=== PATIENT | female | born 1985 | race Caucasian/White ===

== ENCOUNTER 2017-04-10 06:14 | Inpatient (IN) | payer OTHER ==
[2017-04-10] VITALS (7 sets, daily range): BP systolic 115–138; BP diastolic 77–95; PULSE 101–122; TEMP 37–37.8; O2SAT 98–100; BMI 19.7
[~2017-04-10] VITALS: Ht 175.3 cm; Wt 60.3 kg
--- NOTE | 2017-04-10 06:35 | EMERGENCY ROOM VISIT NOTE ---
History First contact with patient: 06:32 Chief Complaint: NAUSEA Stated Complaint: NAUSEA/VOMITING,LIGHTHEADED,INSULIN DEPENDANT DIAB Nursing Triage Summary: Pt reports nausea and vomiting for the past 2 days. Pt reports abdominal cramping. History of Present Illness The patient is a 31 year old female with type 1 diabetes who presents to the Emergency Room with complaints of nausea, vomiting and abdominal pain for the last 2 days. She has been unable to eat since Wednesday. Vomits 5 minutes after eating. Yesterday BSG 297 and 156. Usually on Lantus 8-10 units (did not take any yesterday), 4 units novolog with lunch and dinner (yesterday took 4 units @ 10am, 6 units 6pm). Generalized abdominal pain while vomiting at worse but now lingering pain. Severity 7/10 currently. No change in bowel habit - has irritable bowel syndrome. Last period 2 weeks previously. Lasted 3 days. Irregular amount but regular intervals since stopping contraception. Stopped control in Oct - previously on combined oral contraceptive pill (3 month cycle). No vaginal discharge/bleeding. She likely undiagnosed depression and anxiety and sees a counsellor for this but does. Questions asked without mother present. She denies taking any overdose , self harming or any past or present thoughts of suicidal ideation. She has had previous thoughts of self harm but has never followed through. She was taking ibuprofen 800mg up to x3/day for headaches and acetaminophen up to 1300mg x3/day. She denies taking 5 or greater pills at one time. She denies any recent other OTC, herbal, prescription medication or illicit drug use. She previously used occasional cocaine in college but last had this 7 years previously. Denies IVDU. Additional social history as below. Separate history from her mother away from patient. She is particularly concerned about the patient's mental health and is requesting a mental health evaluation. She is concerned about suicidal ideation as she has not been acting her normal self lately but no known specific plans. She disappeared for around 4 days a few months ago. She is currently not under a psychiatrist and recently moved to the area in Oct. Review of Systems Feels facial flushing and chills with vomiting which is now becoming more often. See HPI for pertinent positives & negatives. A total of 10 systems reviewed and were otherwise negative. Past Medical/Surgical History Medical Problems: (1) Irritable bowel syndrome (2) Type 1 diabetes mellitus Social History Smoking Status: Never Smoker Smokeless Tobacco Use: No Alcohol Use: occasionally (binge drinks (4-5 liquor drinks), 1-2 times/week, previously worse, previous withdrawal symptoms) Drug Use: marijuana (occasional) Marital Status: single Housing Status: lives with family (parents) Occupation Status: employed (works at grocery store) Current/Historical Medications Scheduled Insulin Aspart (Novolog Flexpen), 2-4 UNITS SQ AC Insulin Glargine (Lantus), 8-10 UNITS SC QPM Allergies Coded Allergies: No Known Allergies (Unverified , 04/10/17) Physical Exam Vital Signs Date Time Temp Pulse Resp B/P (MAP) Pulse Ox O2 Delivery O2 Flow Rate FiO2 04/10/17 08:54 120 18 126/87 96 Room Air 04/10/17 08:19 120 18 124/91 97 Room Air 04/10/17 07:48 37.1 122 18 124/91 100 Room Air 04/10/17 07:23 123 04/10/17 07:21 117 20 112/86 99 Room Air 04/10/17 06:19 36.7 140 18 116/78 98 Room Air Physical Exam VITAL SIGNS: were reviewed as above GENERAL: no acute distress SKIN: Warm dry and pink, no rashes, no lesions HEAD: Normocephalic and atraumatic EYES: Extraocular muscles intact, pupils equal and reactive to light OROPHARYNX: non erythematous, clear but dry NECK: Supple, no adenopathy or meningismus LUNGS: Clear to auscultation, no respiratory distress, no accessory muscle use HEART: Increased rate, regular rhythm, heart sounds 1+2, no murmurs ABDOMEN: Generalized abdominal pain without rebound or guarding, soft, bowel sounds normal BACK: no CVA tenderness EXTREMITIES: Warm and well perfused, no calf tenderness/swelling, no pedal edema. NEUROLOGICALLY: Awake alert and oriented without focal deficit. No facial droop. Moving all 4 limbs without focal weakness MUSCULOSKELETAL: Good muscle tone. No evidence of trauma Medical Decision & Procedures ER Provider Diagnostic Interpretation: ABDOMEN AND PELVIS CT WITHOUT CONTRAST CT DOSE: 279.07 mGy.cm HISTORY: Nausea Vomiting, Abdo pain, Cr 2.9 ?appendicitis TECHNIQUE: Multiaxial CT images of the abdomen and pelvis were performed without contrast. COMPARISON STUDY: None. FINDINGS: The lung bases are clear. The unenhanced liver, spleen, gallbladder, pancreas, kidneys, and adrenal glands are within normal limits. No bowel wall thickening or obstruction. The pelvic organs are unremarkable. No suspicious lytic or blastic osseous lesions. IMPRESSION: No significant abnormality identified within the abdomen or pelvis. Electronically signed by: Javad Jordan M.D. 04/10/2017 8:23 AM Dictated Date/Time: 04/10/2017 8:20 AM Laboratory Results 04/10/17 06:30 Red Blood Count 5.45, Mean Corpuscular Volume 90.1, Mean Corpuscular Hemoglobin 32.1, Mean Corpuscular Hemoglobin Concent 35.6, Mean Platelet Volume 10.8, Neutrophils (%) (Auto) 87.5, Lymphocytes (%) (Auto) 4.3, Monocytes (%) (Auto) 7.7, Eosinophils (%) (Auto) 0.0, Basophils (%) (Auto) 0.1, Neutrophils # (Auto) 26.62, Lymphocytes # (Auto) 1.31, Monocytes # (Auto) 2.34, Eosinophils # (Auto) 0.00, Basophils # (Auto) 0.02 04/10/17 06:30 Test 04/10/17 06:25 04/10/17 06:30 04/10/17 06:40 04/10/17 08:00 Bedside Glucose 171 mg/dl (70-90) White Blood Count 30.41 K/uL (4.8-10.8) Red Blood Count 5.45 M/uL (4.2-5.4) Hemoglobin 17.5 g/dL (12.0-16.0) Hematocrit 49.1 % (37-47) Mean Corpuscular Volume 90.1 fL (80-100) Mean Corpuscular Hemoglobin 32.1 pg (25-34) Mean Corpuscular Hemoglobin Concent 35.6 g/dl (32-36) Platelet Count 466 K/uL (130-400) Mean Platelet Volume 10.8 fL (7.4-10.4) Neutrophils (%) (Auto) 87.5 % Lymphocytes (%) (Auto) 4.3 % Monocytes (%) (Auto) 7.7 % Eosinophils (%) (Auto) 0.0 % Basophils (%) (Auto) 0.1 % Neutrophils # (Auto) 26.62 K/uL (1.4-6.5) Lymphocytes # (Auto) 1.31 K/uL (1.2-3.4) Monocytes # (Auto) 2.34 K/uL (0.11-0.59) Eosinophils # (Auto) 0.00 K/uL (0-0.5) Basophils # (Auto) 0.02 K/uL (0-0.2) RDW Standard Deviation 43.9 fL (36.4-46.3) RDW Coefficient of Variation 13.5 % (11.5-14.5) Immature Granulocyte % (Auto) 0.4 % Immature Granulocyte # (Auto) 0.12 K/uL (0.00-0.02) Anion Gap 20.0 mmol/L (3-11) Est Creatinine Clear Calc Drug Dose 27.1 ml/min Estimated GFR () 24.2 Estimated GFR (Non- 20.9 BUN/Creatinine Ratio 15.5 (10-20) Calcium Level 10.4 mg/dl (8.5-10.1) Total Bilirubin 1.6 mg/dl (0.2-1) Aspartate Amino Transf (AST/SGOT) 40 U/L (15-37) Alanine Aminotransferase (ALT/SGPT) 42 U/L (12-78) Alkaline Phosphatase 97 U/L (45-117) Total Protein 10.7 gm/dl (6.4-8.2) Albumin 5.7 gm/dl (3.4-5.0) Globulin 5.0 gm/dl (2.5-4.0) Albumin/Globulin Ratio 1.1 (0.9-2) Lipase 178 U/L (73-393) Thyroid Stimulating Hormone (TSH) 2.110 uIu/ml (0.300-4.500) Human Chorionic Gonadotropin, Qual NEG (NEG) Salicylates Level < 1.7 mg/dl (2.8-20) Acetaminophen Level < 2 ug/ml (10-30) Urine Color DK YELLOW Urine Appearance TURBID (CLEAR) Urine pH 5.0 (4.5-7.5) Urine Specific [place] 1.027 (1.000-1.030) Urine Protein 2+ (NEG) Urine Glucose (UA) NEG (NEG) Urine Ketones 1+ (NEG) Urine Occult Blood 2+ (NEG) Urine Nitrite NEG (NEG) Urine Bilirubin NEG (NEG) Urine Urobilinogen NEG (NEG) Urine Leukocyte Esterase TRACE (NEG) Urine WBC (Auto) >30 /hpf (0-5) Urine RBC (Auto) 5-10 /hpf (0-4) Urine Hyaline Casts (Auto) 1-5 /lpf (0-5) Urine Epithelial Cells (Auto) >30 /lpf (0-5) Urine Bacteria (Auto) 3+ (NEG) Urine Pathogenic Casts /lpf (0) Urine Yeast (Auto) BUDDING (NONE PRSENT) Urine Test NEG (NEG) Prothrombin Time 11.0 SECONDS (9.0-12.0) Prothromb Time International Ratio 1.0 (0.9-1.1) Activated Partial Thromboplast Time 28.5 SECONDS (21.0-31.0) Partial Thromboplastin Ratio 1.1 Ethyl Alcohol mg/dL < 3.0 mg/dl (0-3) Test 04/10/17 08:10 04/10/17 08:25 Lactic Acid Level 1.5 mmol/L (0.4-2.0) Arterial Blood pH 7.46 (7.35-7.45) Arterial Blood Partial Pressure CO2 35 mmHg (35-46) Arterial Blood Partial Pressure O2 78 mm/Hg (80-95) Arterial Blood HCO3 24 mmol/L (19-24) Arterial Blood Oxygen Saturation 95.3 % (90-95) Arterial Blood Base Excess 0.6 mEq/L (-9-1.8) Arterial Blood Gas Delivery ROOM AIR Jordon Test POS (POS) Medications Administered Medications (Trade) Dose Ordered Sig/Saulo Route Start Time Stop Time Status Last Admin Dose Admin Ondansetron HCl (Zofran Inj) 4 mg NOW STAT IV 04/10/17 06:39 04/10/17 06:41 DC 04/10/17 06:49 4 MG Sodium Chloride 1,000 ml @ 999 mls/hr Q1H1M STAT IV 04/10/17 06:39 04/10/17 07:39 DC 04/10/17 06:50 999 MLS/HR Morphine Sulfate (MoRPHine SULFATE INJ) 4 mg NOW STAT IV 04/10/17 06:46 04/10/17 06:48 DC 04/10/17 08:23 4 MG Promethazine HCl 12.5 mg/Sodium Chloride 50.5 ml @ 204 mls/hr NOW STAT IV 04/10/17 06:55 04/10/17 07:09 DC 04/10/17 07:21 204 MLS/HR Sodium Chloride 1,000 ml @ 999 mls/hr Q1H1M STAT IV 04/10/17 07:17 04/10/17 08:17 DC 04/10/17 07:46 999 MLS/HR Piperacillin Sod/ Tazobactam Sod (Zosyn Iv) 3.375 gm NOW STAT IV 04/10/17 07:34 04/10/17 07:36 DC 04/10/17 08:12 3.375 GM Vancomycin HCl 1000 mg/Sodium Chloride 270 ml @ 125 mls/hr NOW STAT IV 04/10/17 07:34 04/10/17 09:43 04/10/17 08:12 125 MLS/HR Lorazepam (Ativan Inj) 1 mg NOW STAT IV 04/10/17 07:55 04/10/17 07:56 DC 04/10/17 08:26 1 MG ECG Indication: abdominal pain, nausea, tachycardia Rate (beats per minute): 120 Rhythm: sinus tachycardia Findings: no acute ischemic change Comparison ECG Date: no prior available ED Course 6:34am Complete history and physical taken 7:06am Discussed case with Dr Love, labs back showing NATALIIA. Additional line , NSS bolus, ABG, lactic acid, blood cultures taken, CT A/P without IV or PO contrast (due to NATALIIA) 7:20am Re-assessed patient and took additional psych and substance abuse history (see HPI), urine tox, alcohol level, salicylate level, TSH, acetaminophen level, PTINR, PTT ordered 9:00am Discussed with Ranulfo Palacio PA-C who will evaluate for admission under [facility] service 9:10am Reassessed patient and she is feeling better. Being evaluated by Ranulfo Palacio at this time. Medical Decision Prior records/ancillary studies reviewed. Triage Nursing notes reviewed. Additional history obtained from patient and her mother. The patient's history was concerning for nausea, vomiting and abdominal pain. Differential diagnosis: Etiologies such as appendicitis, diverticulitis, PUD, biliary pathology, UTI, pancreatitis, obstruction, mesenteric ischemia, aortic pathology, infections, inflammatory bowel disease, renal colic, as well as others were entertained. Physical examination findings: As above. Significant for generalized abdominal tenderness ER treatment provided: Zofran 4mg IV, Phenergan 12.5mg IV, Morphine 4mg IV, NSS bolus x2L On reassessment the patient felt better. Diagnostics interpreted by me: ECG: Sinus tachycardia The labs revealed leukocytosis 30.41, elevated BUN, Cr, Evans, BUN Na 126 Anion gap 20 Glucose 169 ABG - pH 7.46 Imaging studies: CT A/P without IV or oral contrast as above was unremarkable By the evaluation outlined above emergent etiologies such as appendicitis, diverticulitis, PUD, biliary pathology, pancreatitis, obstruction, mesenteric ischemia, aortic pathology, infections, inflammatory bowel disease, renal colic , as well as others were deemed relatively unlikely. She has NATALIIA as per her elevated Cr. [facility] notes have a baseline of 1.18 on discharge from her DKA (when she was diagnosed with T1DM) however mentions her actual baseline of <1. Given leukocytosis with tachycardia, blood cultures x2 were drawn and she was started on empiric antibiotics however no definitive source of infection was identified. There was bacturia but she is not having any urinary Sx to suggest infection and sample may be contaminated given epithelial cells > 30. The cause of her hyponatremia is likely GI losses as she denies any diuretic use, she was rehydrated with 2L NSS. She does not appear to be in DKA as evidenced by her glucose 169 and normal pH. Consultation: A consultation was placed with the [facility] hospitalist. The case was discussed and diagnostics were reviewed. The patient was evaluated in the ER for further treatment. The patient was informed about the findings as listed above. All questions were answered and she was pleased with the treatment. Consults Time Called: 8:50am [facility] Returned Call: 9:00am CXR requested Will evaluate for admission Impression Primary Impression: Acute kidney injury Additional Impressions: Type 1 diabetes mellitus Systemic inflammatory response syndrome (SIRS) Leukocytosis Hyponatremia Bacteria in urine Departure Information Dispostion Being Evaluated By Hospitalist Condition FAIR Referrals No Doctor, Assigned (PCP) Patient Instructions My [facility] Resident Tracking Resident Involvement: Resident Care Provided Care Provided: Adult ED Problem Qualifiers Additional Impressions: Type 1 diabetes mellitus Diabetes mellitus complication status: without complication Qualified Codes: E10.9 - Type 1 diabetes mellitus without complications
[2017-04-10] MEDS ORDERED: ONDANSETRON INJ 2 MG/ML 2 ML VIAL IV STA (06:39)
[2017-04-10] MEDS ORDERED: SODIUM CHLORIDE 0.9% 1000ML 1,000 ML IV STA ×3 (06:39→09:03)
[2017-04-10] MEDS ORDERED: ONDANSETRON INJ 2 MG/ML 2 ML VIAL ONE (06:40)
[2017-04-10] MEDS ORDERED: MoRPHine SULFATE 4 MG/ML 1 ML CARP\\VIAL IV STA (06:46)
[2017-04-10] MEDS ORDERED: PROMETHAZINE HCL INJ 12.5 MG in SODIUM CHLORIDE 0.9% 50ML 50 ML IV STA (06:55)
[2017-04-10 06:56] LABS: URINE APPEARANCE TURBID (CLEAR); URINE COLOR DK YELLOW; URINE EPITHELIAL CELL AUTO >30 /lpf (0-5); URINE NITRITE NEG (NEG); URINE SPECIFIC GRAVITY 1.027 (1.000-1.030); UROBILINOGEN NEG (NEG); ZZUR CULT IF INDIC CLEAN CATCH YES
[2017-04-10 07:03] LABS: BUN/CREATININE RATIO 15.5 (10-20); CALCIUM 10.4 mg/dl (8.5-10.1); CREATININE 2.9 mg/dl (0.60-1.20); POTASSIUM 4.1 mmol/L (3.5-5.1)
[2017-04-10 07:05] LABS: ALB/GLOB RATIO 1.1 (0.9-2)
[2017-04-10] MEDS ORDERED: INSDGI SC (07:09)
[2017-04-10] MEDS ORDERED: NVLGI/PEN SQ (07:09)
[2017-04-10 07:10] LABS: HEMATOCRIT 49.1 % (37-47); MEAN CELL VOLUME 90.1 fL (80-100); MEAN CORPUSCULAR HEMOGLOBIN 32.1 pg (25-34); MEAN CORPUSCULAR HGB CONC 35.6 g/dl (32-36); MEAN PLATELET VOLUME 10.8 fL (7.4-10.4); PLATELET COUNT 466 K/uL (130-400); PREG INTERNAL NEGATIVE QC NEG CLEAR BACKGROUND; PREG INTERNAL POSITIVE QC POS CONTROL LINE; RED BLOOD COUNT 5.45 M/uL (4.2-5.4); WHITE BLOOD COUNT 30.41 K/uL (4.8-10.8)
[2017-04-10 07:15] LABS: BASO % 0.1 %; BASO ABS # 0.02 K/uL (0-0.2); COMPLETE YES; IG% 0.4 %; LYMPH % 4.3 %; LYMPH ABS # 1.31 K/uL (1.2-3.4); MONO % 7.7 %; NEUT % 87.5 %
[2017-04-10 07:16] LABS: MANUAL MICROSCOPIC REQUIRED? NO; REVIEW REQ? YES; URINE BILIRUBIN NEG (NEG)
[2017-04-10] MEDS ORDERED: VANCOMYCIN INJ 1,000 MG in SODIUM CHLORIDE 0.9% 250ML 250 ML IV STA (07:34)
[2017-04-10] MEDS ORDERED: PIPERACILLIN/TAZOBACTAM 3.375 GM/100ML D5W IV STA (07:34)
[2017-04-10] MEDS ORDERED: LORAZEPAM 2 MG/ML 1 ML VIAL IV STA (07:55)
[2017-04-10 08:12] LABS: ACETAMINOPHEN < 2 ug/ml (10-30)
--- NOTE | 2017-04-10 08:24 | DIAGNOSTIC IMAGING REPORT ---
ABDOMEN AND PELVIS CT WITHOUT CONTRAST CT DOSE: 279.07 mGy.cm HISTORY: Nausea Vomiting, Abdo pain, Cr 2.9 ?appendicitis TECHNIQUE: Multiaxial CT images of the abdomen and pelvis were performed without contrast. COMPARISON STUDY: None. FINDINGS: The lung bases are clear. The unenhanced liver, spleen, gallbladder, pancreas, kidneys, and adrenal glands are within normal limits. No bowel wall thickening or obstruction. The pelvic organs are unremarkable. No suspicious lytic or blastic osseous lesions. IMPRESSION: No significant abnormality identified within the abdomen or pelvis. Electronically signed by: Javad Jordan M.D. 04/10/2017 8:23 AM Dictated Date/Time: 04/10/2017 8:20 AM
[2017-04-10 08:30] LABS: PARTIAL THROMBOPLASTIN RATIO 1.1
[2017-04-10 08:34] LABS: ALLEN TEST POS (POS); ARTERIAL BLD GAS O2 SATURATION 95.3 % (90-95); ARTERIAL BLOOD GAS BASE EXCESS 0.6 mEq/L (-9-1.8); ARTERIAL BLOOD GAS HCO3 24 mmol/L (19-24); ARTERIAL BLOOD GAS PO2 78 mm/Hg (80-95); ARTERIAL BLOOD GAS pH 7.46 (7.35-7.45); O2 ADMINISTRATION ROOM AIR
--- NOTE | 2017-04-10 09:23 | DIAGNOSTIC IMAGING REPORT ---
CHEST ONE VIEW PORTABLE CLINICAL HISTORY: SIRS ?pneumonia dyspnea COMPARISON STUDY: No previous studies for comparison. FINDINGS: The bones soft tissues and hemidiaphragms are normal. The cardiomediastinal silhouette is normal. The lungs are clear. The pulmonary vasculature is normal. IMPRESSION: Negative chest. Electronically signed by: Javad Jordan M.D. 04/10/2017 9:22 AM Dictated Date/Time: 04/10/2017 9:22 AM
[2017-04-10] MEDS ORDERED: SODIUM CHLORIDE 0.9% 1000ML 1,000 ML IV ONE (09:50)
[2017-04-10] MEDS ORDERED: INSULIN IV INFUSION PROTOCOL STA (09:50)
[2017-04-10] MEDS ORDERED: PENDING NSS+20mEq KCL IVF SCH (10:00)
[2017-04-10] MEDS: PENDING D5 1/2NS+20mEq KCL IVF SCH ×3 (10:00→14:03)
[2017-04-10] MEDS ORDERED: LORAZEPAM 2 MG/ML 1 ML VIAL IV PRN (10:00)
[2017-04-10] MEDS ORDERED: DKA GOAL RANGE 150-250 mg/dl 1 EA ONE (10:00)
[2017-04-10] MEDS ORDERED: SEVERE STRESS LEVEL ONE (10:00)
[2017-04-10] MEDS ORDERED: PHARMACY GLYCEMIC MGMT CONSULT PRN (10:00)
[2017-04-10 10:19] LABS: MAGNESIUM 2.6 mg/dl (1.8-2.4); PHOSPHORUS 2.3 mg/dl (2.5-4.9)
--- NOTE | 2017-04-10 10:25 | History and Physical ---
History & Physical Date & Time of Service: Apr 10, 2017 at 09:40 Chief Complaint: Nausea/Vomiting,Lightheaded,Insulin Dependant Diab Primary Care Physician: Jennie Boston.BRIDGETT History of Present Illness Source: patient, family Attending: Dr. Stoll This is a 31 yo female that was recently diagnosed with Type I diabetes in February 2017. She states that she has had 2 days of nausea and vomiting every 15 mins. She attempted to stay hydrated by drinking water but vomited each time. Her mother was out of town and when she returned she brought the patient to the ED for evaluation. Patient labs revealed glucose of 169, Anion gap of 20, lactic acid 1.5. Also found to have NATALIIA with a creatinine of 2.9 (baseline 1). Patient states that she feels "shaky" but nausea is improved. The patient has never smoked cigarettes but has smoked marijuana several years ago. She binge drinks on the weekends and most recently consumed about 10 drinks this past at a concert and 3-4 drinks Wednesday evening. She denies aspiration. She has no hematuria but does state that she has some irritation with urination. She has no chest pain, abdominal pain, back pain, or limb pain. She denies SOB, cough, hemoptysis. She has no history of malignancy or . She has no other PMH. She takes Lantus 8-9 units daily at night and is on a Novolog SSI. She checks glucose 3 times daily with meals but no longer keeps a log. She states that sugars are typically in the 90s. She follows with an nurse unit manager at [facility]. She recently established with [facility] with Jennie Boston PA-C Past Medical/Surgical History Medical Problems: (1) NATALIIA (acute kidney injury) Baseline creatinine around 1 (2) DKA, type 1 Newly diagnosed 02/2017 (3) Irritable bowel syndrome Surgical History: None Family History Maternal grandmother with breast cancer No other family history of diabetes Father with Hx Prostate CA Social History Smoking Status: Never Smoker Smokeless Tobacco Use: No Alcohol Use: occasionally (Binge drinks on weekends. 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) Multi-Drug Resistant Organisms History of MDRO: No Allergies Coded Allergies: No Known Allergies (Unverified , 04/10/17) Home Medications Scheduled Insulin Aspart (Novolog Flexpen), 2-4 UNITS SQ AC Insulin Glargine (Lantus), 8-10 UNITS SC QPM Review of Systems A total of 12 systems was reviewed and is negative other than as listed above in the HPI Physical Exam Vital Signs Date Time Temp Pulse Resp B/P (MAP) Pulse Ox O2 Delivery O2 Flow Rate FiO2 04/10/17 08:54 120 18 126/87 96 Room Air 04/10/17 08:19 120 18 124/91 97 Room Air 04/10/17 07:48 37.1 122 18 124/91 100 Room Air 04/10/17 07:23 123 04/10/17 07:21 117 20 112/86 99 Room Air 04/10/17 06:19 36.7 140 18 116/78 98 Room Air General - NAD but with some anxiety Eyes - No icterus, gaze conjugate. Pupils equal and responsive ENT - Mucosa moist, no lesions or candidiasis. No dental caries. Neck - Supple, No JVD. No bruits or stridor Lungs - No bronchospasm, rales, or rhonchi. Heart - Regular, tachy ion the low 100s Abdomen - Soft, NT, ND, BS present. Some tenderness to deep palpation in LUQ with no guarding Extremities - No edema, pedal pulses intact Neuro - A&OX3 Skin - 5 tattoos all professionally placed Diagnostics Laboratory Results Results Past 24 Hours Test 04/10/17 06:25 04/10/17 06:30 04/10/17 06:40 04/10/17 08:00 Range/Units Bedside Glucose 171 70-90 mg/dl White Blood Count 30.41 4.8-10.8 K/uL Red Blood Count 5.45 4.2-5.4 M/uL Hemoglobin 17.5 12.0-16.0 g/dL Hematocrit 49.1 37-47 % Mean Corpuscular Volume 90.1 80-100 fL Mean Corpuscular Hemoglobin 32.1 25-34 pg Mean Corpuscular Hemoglobin Concent 35.6 32-36 g/dl Platelet Count 466 130-400 K/uL Mean Platelet Volume 10.8 7.4-10.4 fL Neutrophils (%) (Auto) 87.5 % Lymphocytes (%) (Auto) 4.3 % Monocytes (%) (Auto) 7.7 % Eosinophils (%) (Auto) 0.0 % Basophils (%) (Auto) 0.1 % Neutrophils # (Auto) 26.62 1.4-6.5 K/uL Lymphocytes # (Auto) 1.31 1.2-3.4 K/uL Monocytes # (Auto) 2.34 0.11-0.59 K/uL Eosinophils # (Auto) 0.00 0-0.5 K/uL Basophils # (Auto) 0.02 0-0.2 K/uL RDW Standard Deviation 43.9 36.4-46.3 fL RDW Coefficient of Variation 13.5 11.5-14.5 % Immature Granulocyte % (Auto) 0.4 % Immature Granulocyte # (Auto) 0.12 0.00-0.02 K/uL Sodium Level 128 136-145 mmol/L Potassium Level 4.1 3.5-5.1 mmol/L Chloride Level 80 98-107 mmol/L Carbon Dioxide Level 28 21-32 mmol/L Anion Gap 20.0 3-11 mmol/L Blood Urea Nitrogen 45 7-18 mg/dl Creatinine 2.90 0.60-1.20 mg/dl Est Creatinine Clear Calc Drug Dose 27.1 ml/min Estimated GFR () 24.2 Estimated GFR (Non- 20.9 BUN/Creatinine Ratio 15.5 10-20 Random Glucose 169 70-99 mg/dl Calcium Level 10.4 8.5-10.1 mg/dl Total Bilirubin 1.6 0.2-1 mg/dl Aspartate Amino Transf (AST/SGOT) 40 15-37 U/L Alanine Aminotransferase (ALT/SGPT) 42 12-78 U/L Alkaline Phosphatase 97 45-117 U/L Total Protein 10.7 6.4-8.2 gm/dl Albumin 5.7 3.4-5.0 gm/dl Globulin 5.0 2.5-4.0 gm/dl Albumin/Globulin Ratio 1.1 0.9-2 Lipase 178 73-393 U/L Thyroid Stimulating Hormone (TSH) 2.110 0.300-4.500 uIu/ml Human Chorionic Gonadotropin, Qual NEG NEG Salicylates Level < 1.7 2.8-20 mg/dl Acetaminophen Level < 2 10-30 ug/ml Urine Color DK YELLOW Urine Appearance TURBID CLEAR Urine pH 5.0 4.5-7.5 Urine Specific [place] 1.027 1.000-1.030 Urine Protein 2+ NEG Urine Glucose (UA) NEG NEG Urine Ketones 1+ NEG Urine Occult Blood 2+ NEG Urine Nitrite NEG NEG Urine Bilirubin NEG NEG Urine Urobilinogen NEG NEG Urine Leukocyte Esterase TRACE NEG Urine WBC (Auto) >30 0-5 /hpf Urine RBC (Auto) 5-10 0-4 /hpf Urine Hyaline Casts (Auto) 1-5 0-5 /lpf Urine Epithelial Cells (Auto) >30 0-5 /lpf Urine Bacteria (Auto) 3+ NEG Urine Pathogenic Casts 0 /lpf Urine Yeast (Auto) BUDDING NONE PRSENT Urine Test NEG NEG Prothrombin Time 11.0 9.0-12.0 SECONDS Prothromb Time International Ratio 1.0 0.9-1.1 Activated Partial Thromboplast Time 28.5 21.0-31.0 SECONDS Partial Thromboplastin Ratio 1.1 Ethyl Alcohol mg/dL < 3.0 0-3 mg/dl Test 04/10/17 08:10 04/10/17 08:25 Range/Units Lactic Acid Level 1.5 0.4-2.0 mmol/L Arterial Blood pH 7.46 7.35-7.45 Arterial Blood Partial Pressure CO2 35 35-46 mmHg Arterial Blood Partial Pressure O2 78 80-95 mm/Hg Arterial Blood HCO3 24 19-24 mmol/L Arterial Blood Oxygen Saturation 95.3 90-95 % Arterial Blood Base Excess 0.6 -9-1.8 mEq/L Arterial Blood Gas Delivery ROOM AIR Jordon Test POS POS Microbiology Results 04/10/17 Blood Culture, Received Pending 04/10/17 Blood Culture, Received Pending 04/10/17 Urine Culture, Received Pending Diagnostic Radiology ABDOMEN AND PELVIS CT WITHOUT CONTRAST CT DOSE: 279.07 mGy.cm HISTORY: Nausea Vomiting, Abdo pain, Cr 2.9 ?appendicitis TECHNIQUE: Multiaxial CT images of the abdomen and pelvis were performed without contrast. COMPARISON STUDY: None. FINDINGS: The lung bases are clear. The unenhanced liver, spleen, gallbladder, pancreas, kidneys, and adrenal glands are within normal limits. No bowel wall thickening or obstruction. The pelvic organs are unremarkable. No suspicious lytic or blastic osseous lesions. IMPRESSION: No significant abnormality identified within the abdomen or pelvis. Electronically signed by: Javad Jordan M.D. 04/10/2017 8:23 AM CHEST ONE VIEW PORTABLE CLINICAL HISTORY: SIRS ?pneumonia dyspnea COMPARISON STUDY: No previous studies for comparison. FINDINGS: The bones soft tissues and hemidiaphragms are normal. The cardiomediastinal silhouette is normal. The lungs are clear. The pulmonary vasculature is normal. IMPRESSION: Negative chest. Electronically signed by: Javad Jordan M.D. 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 Ashby from Nephrology Follow serial labs HYPONATREMIA Will hydrate with NSS until anion gap closes then switch to D5W Most likely from dehydration Follow serial labs Other electrolytes balanced DEPRESSION ANXIETY Consult Psychiatry PRN Lorazepam EtOH ABUSE Thiamine and Folate replacement Psych eval for depression TACHYCARDIA Most likely due to dehydration EKG with sinus tach No chest pain or tightness No hypoxia GI PROPHYLAXIS Hx IBS Pantoprazole IV until able to take PO then switch to PO DVT PROPHYLAXIS SCDs Ambulate as tolerated Please refer to Dr. Stoll's addendum for further recommendations ATTENDING NOTE : pt seen and examined care co ordninated with Ranulfo Palacio PA-C record reviewed , please see Ranulfo Lamar PA-C note for detail documentation 31 yo F from [place] Dx with type 1 DM in Aug 2016 -was admitted in [facility] with DKA has been on Lantus /Liza Log questionable compliance reports of binge drinking Alcohol -last drink was ~3 days back presented with 2 days hx of intractable nausea /vomiting P/E: gen ; no apparent distress HEENT: sclera non icteric HT; regular , tachycardic Lungs: CTA abdomen : soft Ext : no lower ext edema Neuro; no focal deficit 31 yo F hx of type 1 DM , presents with possible DKA , NATALIIA , hx of alcohol abuse , depression found to be in NATALIIA with Cr ~2 will be admitted to Tele IV fluids Insulin gtt UA +ve for leukocyte esterase pt denies of any urinary symptoms empiric Abx with Rocephin Alcohol abuse : IV Ativan per alcohol with drawl protocol pt is counselled for abstinence can lead to life threatening complication Type 1 DM with Binge drinking pt verbalizes understanding Depression : no on any antidepressant meds Psych eval requested Full code Level of Care Telemetry Resuscitation Status FULL RESUSCITATION VTE Prophylaxis VTE Risk Assessment Done? Y/N: Yes Risk Level: Low Given or contraindicated: T.E.D. Stockings, SCD's Social Service Consult None Apply
[2017-04-10] MEDS ORDERED: GLUCAGON FOR INJ 1 MG VIAL SQ PRN (10:30)
[2017-04-10] MEDS ORDERED: POLYETHYLENE (MIRALAX) 17 GM PACK PO PRN (10:30)
[2017-04-10] MEDS ORDERED: INSULIN REGULAR 250 UNITS in SODIUM CHLORIDE 0.9% 250ML 250 ML IV SCH ×2 (10:30→11:30)
[2017-04-10] MEDS ORDERED: NSS + 20MEQ KCL 1000ML 1,000 ML IV SCH (10:30)
[2017-04-10] MEDS ORDERED: ALUMINUM/MAGNESIUM/SIMETH (MAALOX MAX) 30 ML UDC PO PRN (10:30)
[2017-04-10] MEDS ORDERED: GLUCOSE 40% GEL 15 GM TUBE PO PRN (10:30)
[2017-04-10] MEDS ORDERED: DEXTROSE 50% 50 ML SYR IV PRN (10:30)
[2017-04-10] MEDS ORDERED: ZOLPIDEM TARTRATE 5 MG TAB PO PRN (10:30)
[2017-04-10] MEDS ORDERED: ACETAMINOPHEN 325 MG TAB PO PRN (10:30)
[2017-04-10] MEDS ORDERED: GLUCOSE 10 TABS/TUBE PO PRN (10:30)
[2017-04-10] MEDS ORDERED: MAGNESIUM HYDROXIDE SUSP 30 ML UDC PO PRN (10:30)
[2017-04-10] MEDS ORDERED: THIAMINE HCL INJ 100 MG in SYRINGE 9 ML IV ONE (10:30)
[2017-04-10] MEDS ORDERED: ONDANSETRON INJ 2 MG/ML 2 ML VIAL IV PRN (10:30)
[2017-04-10 10:37] LABS: BETA-HYDROXYBUTYRATE 49.18 mg/dL (0.2-2.81)
[2017-04-10 11:11] LABS: ESTIMATED AVERAGE GLUCOSE 88 mg/dl; HA1C FLAG Normal (Normal)
[2017-04-10] MEDS ORDERED: D5W AND 1/2NSS + 20MEQ KCL 1000 ML IV SCH (11:15)
[2017-04-10] MEDS: D5W AND 1/2NSS + 20MEQ KCL 1000 ML IV SCH ×2 (11:23→19:24)
[2017-04-10] MEDS ORDERED: INSULIN ASPART 100 UNITS/ML 3 ML PEN SC SCH (12:00)
--- NOTE | 2017-04-10 12:07 | Pharmacy Progress Note ---
Glycemic Control Intl Consult Date of Service Apr 10, 2017. Scope Glycemic Pharmacist consulted by Dr. Stoll on 04/10/17 for glycemic control and to write orders per [facility] inpatient glycemic control protocol Objective Weight (Kilograms): 60.000 Accuchecks BSG (last 24hrs): Test 04/10/17 06:25 04/10/17 06:30 04/10/17 10:03 04/10/17 10:42 Bedside Glucose 171 mg/dl (70-90) 111 mg/dl (70-90) 110 mg/dl (70-90) Random Glucose 169 mg/dl (70-99) Laboratory Data (last 24hrs) Test 04/10/17 06:30 04/10/17 08:00 Anion Gap 20.0 mmol/L BUN/Creatinine Ratio 15.5 Blood Urea Nitrogen 45 mg/dl Creatinine 2.90 mg/dl Potassium Level 4.1 mmol/L Sodium Level 128 mmol/L White Blood Count 30.41 K/uL Red Blood Count 5.45 M/uL Hemoglobin 17.5 g/dL Hematocrit 49.1 % Mean Corpuscular Volume 90.1 fL Mean Corpuscular Hemoglobin 32.1 pg Mean Corpuscular Hemoglobin Concent 35.6 g/dl Platelet Count 466 K/uL Mean Platelet Volume 10.8 fL Neutrophils (%) (Auto) 87.5 % Lymphocytes (%) (Auto) 4.3 % Monocytes (%) (Auto) 7.7 % Eosinophils (%) (Auto) 0.0 % Basophils (%) (Auto) 0.1 % Neutrophils # (Auto) 26.62 K/uL Lymphocytes # (Auto) 1.31 K/uL Monocytes # (Auto) 2.34 K/uL Eosinophils # (Auto) 0.00 K/uL Basophils # (Auto) 0.02 K/uL Hemoglobin A1c 4.7 % HbA1c Test 04/10/17 08:00 Hemoglobin A1c 4.7 % (4.5-5.6) Recent Pertinent Medications Outpatient Anti-diabetic Regimen: * Lantus 8-10 units, Novolog 2-4 units AC * TDD 14-22 units per day * A1c = 4.7 % from today 04/10/17 * EAG = 88 mg/dl Risk Factors for Insulin Resistance: * Infection: Questionable, Given Vanc + Zosyn in ED. Ordered Rocephin IV upon admission. * IVF: D51/2NS + 20 meq KCl at 125 ml/hr * Diet: NPO Assessment & Plan ASSESSMENT: * ADA & AACE recommend a goal blood sugar range 140-180 mg/dl for the majority of critically ill & non-critically ill patients. However, more stringent targets may be selected in individual cases. * 31 yo female admitted with NATALIIA and DKA. Recently diagnosed with DM1 in February 2017. A1c indicates controlled BSGs as an outpatient. * No Lantus administered yesterday. Pt reports 2 days of N/V prior to admission. She also reports h/o binge alcoholism most recently on Wednesday this week. * Anion gap = 20 H. Therefore, patient was ordered an Insulin gtt on admission. Pharmacy consulted to continue management of glycemic regimen during admission and transition to SQ basal/bolus when appropriate. Will assess appropriateness of this transition in 24 hours. * Pt is NPO, however, she will require some insulin on board d/t the nature of Type 1 diabetes. Will start Insulin gtt at 1 unit per hour (vs 2.2 units per hour as instructed by gtt calculator). The pt's BSG is 110 mg/dl and she is a type 1 diabetic therefore I predict her needs are less than estimated by the calculator. Of note, she only requires a TDD of 14-22 units of insulin per day with well controlled BSGs as an outpatient. * Also, the goal BSG range will be adjusted from 150-250mg/dl to 140-180mg/dl since pt's BSG is 110 mg/dl already. PLAN FOR INPATIENT GLYCEMIC CONTROL: * Starting IV insulin infusion per moderate stress protocol * Goal Range 140 - 180 mg/dl * In the critical care setting, continuous IV insulin infusion has been shown to be the best method for achieving glycemic targets. * Starting rate: 1 unit per hour, recheck in 1 hour and adjust per insulin infusion calculator. * Please note that the plan above was derived based on current level of insulin resistance and hospital stress. These recommendations are appropriate for inpatient admission only. Plan of care upon discharge will need to be reassessed to avoid potential outpatient hypo/hyperglycemia. Thank you.
[2017-04-10] MEDS: CEFTRIAXONE SOD INJ 1 GM in DEXTROSE 5% ADD-VANTAGE 50ML 50 ML IV SCH (12:16)
[2017-04-10] MEDS: PANTOprazole INJ 40 MG in SYRINGE 0 ML IV SCH (12:16)
[2017-04-10 13:32] LABS: BUN/CREATININE RATIO 20.6 (10-20); CALCIUM 7.9 mg/dl (8.5-10.1); CREATININE 1.4 mg/dl (0.60-1.20); MAGNESIUM 2.6 mg/dl (1.8-2.4); PHOSPHORUS 2.8 mg/dl (2.5-4.9); POTASSIUM 3.6 mmol/L (3.5-5.1)
--- NOTE | 2017-04-10 14:02 | Nephrology Consultation ---
Nephrology Consultation Date of Consultation: Apr 10, 2017. Attending Physician: Dr Stoll Requesting Physician: Dr Stoll Reason for Consultation: NATALIIA History of Present Illness 31 year old female admitted this am w/ DKA and NATALIIA after presenting w/ 2 days of N/V after some binge EtoH use and THC use earlier in the week. her presenting creatinine was 2.9 w/ AG of 20 and lactate 1.5; WBC 30 K on admission. She had 3L NS in ER and was then started on NS w/ 20 mEq/L K at 125 mL hourly. Repeat labs are pending. No f but some prior to admission chills/ no rigors and no imaging abnormalities but HR in 120s. not hypotensive. endorses diminished uop. takes occasional ibuprofen prn > last time was 04/05 had 800 then 400 mg dose. Past Medical/Surgical History Medical Problems: (1) Acute kidney injury Status: Acute (2) Bacteria in urine Status: Acute (3) Hyponatremia Status: Acute (4) Leukocytosis Status: Acute (5) Systemic inflammatory response syndrome (SIRS) Status: Acute (6) Type 1 diabetes mellitus Status: Chronic -DM type 1, dx'd 08/2016 - Family History no CKD/ESRD Social History Smoking Status: Never Smoker Alcohol Use: occasionally (binge drinks (4-5 liquor drinks), 1-2 times/week, previously worse, previous withdrawal symptoms) Drug Use: marijuana (occasional) Marital Status: single, ( of sarcoma about 4 years ago) Housing Status: lives with family (parents) 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) Allergies Coded Allergies: No Known Allergies (Unverified , 04/10/17) Medications Current Inpatient Medications Medications (Trade) Dose Ordered Sig/Saulo Route Start Time Stop Time Status Last Admin Dose Admin Insulin Aspart (novoLOG ASPART) SLIDING SCALE PCHS SC 04/10/17 12:00 05/10/17 12:59 Miscellaneous Information (PENDING D5 1/ 2NS+20mEq KCL IVF) 1 ea Q2H N/A 04/10/17 10:00 05/10/17 09:59 04/10/17 11:36 1 EA Miscellaneous Information (Consult Glycemic Management Pharmacy) 1 ea UD PRN N/A 04/10/17 10:00 05/10/17 09:59 Ceftriaxone Sodium 1 gm/ Dextrose 50 ml @ 100 mls/hr Q24H IV 04/10/17 12:00 04/15/17 11:59 04/10/17 12:16 100 MLS/HR Thiamine HCl 100 mg/Syringe 10 ml @ 2 mls/min Q24H IV 04/11/17 11:00 05/11/17 10:59 Lorazepam (Ativan Inj) 1 mg ONE PRN IV 04/10/17 10:00 05/10/17 09:59 Folic Acid 1 mg/ Syringe 10 ml @ 5 mls/min QAM IV 04/11/17 09:00 05/11/17 08:59 Pantoprazole Sodium 40 mg/ Syringe 10 ml @ 5 mls/min DAILY@11 IV 04/10/17 12:00 05/10/17 11:59 04/10/17 12:16 5 MLS/MIN Glucose (Glucose 40% Gel) UD PRN PO 04/10/17 10:30 05/10/17 10:29 Glucose (Glucose Chew Tab) 1 tabs UD PRN PO 04/10/17 10:30 05/10/17 10:29 Dextrose (Dextrose 50% 50ML Syringe) 50 ml UD PRN IV 04/10/17 10:30 05/10/17 10:29 Glucagon (Glucagon Inj) 1 mg UD PRN SQ 04/10/17 10:30 05/10/17 10:29 Acetaminophen (Tylenol Tab) 650 mg Q4H PRN PO 04/10/17 10:30 05/10/17 10:29 Al Hydrox/Mg Hydrox/Simethicone (Maalox Max Susp) 15 ml Q4H PRN PO 04/10/17 10:30 05/10/17 10:29 Magnesium Hydroxide (Milk Of Magnesia Susp) 30 ml Q12H PRN PO 04/10/17 10:30 05/10/17 10:29 Zolpidem Tartrate (Ambien Tab) 5 mg HSZ PRN PO 04/10/17 10:30 05/10/17 10:29 Ondansetron HCl (Zofran Inj) 4 mg Q6H PRN IV 04/10/17 10:30 05/10/17 10:29 Polyethylene (Miralax Powder Packet) 17 gm DAILY PRN PO 04/10/17 10:30 05/10/17 10:29 Potassium Chloride/Dextrose/ Sod Cl 1,000 ml @ 125 mls/hr Q8H IV 04/10/17 11:15 05/10/17 11:14 04/10/17 11:23 125 MLS/HR Insulin Human Regular 250 units/ Sodium Chloride 252.5 ml @ 0 mls/hr DAILY@1130 IV 04/10/17 11:30 05/10/17 11:29 04/10/17 11:31 1 MLS/HR Home Meds and Scripts Medications Dose Route/Sig Max Daily Dose Days Date Category Novolog Flexpen (Insulin Aspart) 100 Units/Ml Inj 2-4 Units SQ AC 04/10/17 Reported Lantus (Insulin Glargine) 100 Unit/Ml Inj 8-10 Units SC QPM 04/10/17 Reported Review of Systems Constitutional: + chills, + fatigue, No fever, No weakness Eyes: No worsening of vision ENT: No hearing loss Respiratory: No cough, No shortness of breath Cardiac: No chest pain, No edema, No palpitations Abdomen: + pain (BL low ant abd), + nausea, + vomiting, No constipation Musculoskeletal: No joint pain, No muscle pain Female : + problem reported (decreased uop), No dysuria, No urinary frequency , No hematuria Neuro: No memory loss, No weakness Psych: + substance abuse, No depression symptoms, No anxiety Heme: No abnormal bleeding/bruising Endo: + fatigue Skin: + problem reported (flushing which started since arrival to floor no itch ), No rash, No itch Physical Exam Date Time Temp Pulse Resp B/P (MAP) Pulse Ox O2 Delivery O2 Flow Rate FiO2 04/10/17 11:34 37.0 112 16 129/84 (99) 100 Room Air 04/10/17 10:14 117 18 127/87 100 Room Air 04/10/17 09:59 100 Room Air 04/10/17 09:57 107 04/10/17 08:54 120 18 126/87 96 Room Air 04/10/17 08:19 120 18 124/91 97 Room Air 04/10/17 07:48 37.1 122 18 124/91 100 Room Air 04/10/17 07:23 123 04/10/17 07:21 117 20 112/86 99 Room Air 04/10/17 07:20 95 Room Air 04/10/17 06:19 36.7 140 18 116/78 98 Room Air General Appearance: WD/WN, no apparent distress, + thin Eyes: EOMI ENT: hearing grossly normal, + pertinent finding (dry MM on ra) Neck: supple Respiratory/Chest: lungs clear, + decreased breath sounds Cardiovascular: no edema, + tachycardia (regularly spaced beats) Abdomen: normal bowel sounds, soft, + tenderness (BL lower quadrants to moderate palpation w/o guarding) Extremities: non-tender Neurologic/Psych: alert, normal mood/affect, oriented x 3 Skin: no jaundice, warm/dry, no rash, + pertinent finding (flushing) Diagnostics Last 24 Hours Test 04/10/17 06:25 04/10/17 06:30 04/10/17 06:40 04/10/17 08:00 Bedside Glucose 171 mg/dl White Blood Count 30.41 K/uL Red Blood Count 5.45 M/uL Hemoglobin 17.5 g/dL Hematocrit 49.1 % Mean Corpuscular Volume 90.1 fL Mean Corpuscular Hemoglobin 32.1 pg Mean Corpuscular Hemoglobin Concent 35.6 g/dl Platelet Count 466 K/uL Mean Platelet Volume 10.8 fL Neutrophils (%) (Auto) 87.5 % Lymphocytes (%) (Auto) 4.3 % Monocytes (%) (Auto) 7.7 % Eosinophils (%) (Auto) 0.0 % Basophils (%) (Auto) 0.1 % Neutrophils # (Auto) 26.62 K/uL Lymphocytes # (Auto) 1.31 K/uL Monocytes # (Auto) 2.34 K/uL Eosinophils # (Auto) 0.00 K/uL Basophils # (Auto) 0.02 K/uL RDW Standard Deviation 43.9 fL RDW Coefficient of Variation 13.5 % Immature Granulocyte % (Auto) 0.4 % Immature Granulocyte # (Auto) 0.12 K/uL Sodium Level 128 mmol/L Potassium Level 4.1 mmol/L Chloride Level 80 mmol/L Carbon Dioxide Level 28 mmol/L Anion Gap 20.0 mmol/L Blood Urea Nitrogen 45 mg/dl Creatinine 2.90 mg/dl Est Creatinine Clear Calc Drug Dose 27.1 ml/min Estimated GFR () 24.2 Estimated GFR (Non- 20.9 BUN/Creatinine Ratio 15.5 Random Glucose 169 mg/dl Calcium Level 10.4 mg/dl Total Bilirubin 1.6 mg/dl Aspartate Amino Transf (AST/SGOT) 40 U/L Alanine Aminotransferase (ALT/SGPT) 42 U/L Alkaline Phosphatase 97 U/L Total Protein 10.7 gm/dl Albumin 5.7 gm/dl Globulin 5.0 gm/dl Albumin/Globulin Ratio 1.1 Lipase 178 U/L Thyroid Stimulating Hormone (TSH) 2.110 uIu/ml Human Chorionic Gonadotropin, Qual NEG Salicylates Level < 1.7 mg/dl Acetaminophen Level < 2 ug/ml Urine Color DK YELLOW Urine Appearance TURBID Urine pH 5.0 Urine Specific [place] 1.027 Urine Protein 2+ Urine Glucose (UA) NEG Urine Ketones 1+ Urine Occult Blood 2+ Urine Nitrite NEG Urine Bilirubin NEG Urine Urobilinogen NEG Urine Leukocyte Esterase TRACE Urine WBC (Auto) >30 /hpf Urine RBC (Auto) 5-10 /hpf Urine Hyaline Casts (Auto) 1-5 /lpf Urine Epithelial Cells (Auto) >30 /lpf Urine Bacteria (Auto) 3+ Urine Pathogenic Casts /lpf Urine Yeast (Auto) BUDDING Urine Test NEG Prothrombin Time 11.0 SECONDS Prothromb Time International Ratio 1.0 Activated Partial Thromboplast Time 28.5 SECONDS Partial Thromboplastin Ratio 1.1 Estimated Average Glucose 88 mg/dl Hemoglobin A1c 4.7 % Phosphorus Level 2.3 mg/dl Magnesium Level 2.6 mg/dl Beta-Hydroxybutyric Acid 49.18 mg/dL Ethyl Alcohol mg/dL < 3.0 mg/dl Test 04/10/17 08:10 04/10/17 08:25 04/10/17 10:03 04/10/17 10:42 Lactic Acid Level 1.5 mmol/L Arterial Blood pH 7.46 Arterial Blood Partial Pressure CO2 35 mmHg Arterial Blood Partial Pressure O2 78 mm/Hg Arterial Blood HCO3 24 mmol/L Arterial Blood Oxygen Saturation 95.3 % Arterial Blood Base Excess 0.6 mEq/L Arterial Blood Gas Delivery ROOM AIR Jordon Test POS Bedside Glucose 111 mg/dl 110 mg/dl Test 04/10/17 12:28 04/10/17 12:41 04/10/17 12:50 Bedside Glucose 100 mg/dl 115 mg/dl Diagnostic Radiology: cxr no acute process ct abd pelvis > no chronic or acute pathology; normal kidneys adrenals bladder EKG: sinus tach Assessment & Plan 31 y/o F w/ DM1 dx'd 08/2016 admitted this am w/ DKI and NATALIIA , WBC 30K and creat 2.9 after binge EtOH use a few days back followed by several days n/v. HR consistently in 110s-120s; concentrated contaminated urine specimen w/ yeast and bacteria and ketones. presenting sodium 128 w/ albumin 5.7, hgb 17.5, plts 466: hx of 2 days n/v. No recent outpt baseline available -- in 2013 creat was 0.9; no baseline urine studies. Getting empiric zosyn, vanco. -cont current NS w/ 20 mEq/L K at 125 ml hourly per protocol w/ switch D5W per protocol when gap closes -f/u pending labs/cxs >> f/u labs marekdly improved w/ K 3.6, Na 139, creat 1.4 ; change in Na acceptable for volume depletion -suspect hyponatremia is hypovolemic and await repeat labs -stirct I/O -hold vanco for level >25 -f/u pending cxs Appreciate consult; will follow with you.
--- NOTE | 2017-04-10 14:23 | EMERGENCY ROOM VISIT NOTE ---
ED Visit Note First contact with patient: 06:32 Resident Physician Supervision Note: I interviewed and examined the patient. Discussed with Dr. Rowe and agree with findings and plan as documented in the note. Any exceptions or clarifications are listed here: [None] The patient was hydrated with normal saline solution. Glucose level seemed to be normal. Laboratory work is notable for a marked leukocytosis and acute kidney injury. Patient's potassium level is stable. EKG is significant for tachycardia. The patient has improved somewhat on IV hydration. The patient will be evaluated by the hospitalist service for admission, further IV hydration and further management. Patient are aware of the plan and agree. Diagnosis: Acute kidney injury, leukocytosis, dehydration, insulin-dependent diabetes I have personally spent greater than 30 minutes of critical care time in the direct management of this patient. This includes bedside care, interpretation of diagnostic studies, and testing, discussion with consultants, patient, and family members, and other required patient management activities. This 30 minutes is in excess of all separately billable procedures. Documented By: Venice Love
[2017-04-10 14:39] LABS: BENZODIAZEPINE, URINE NEG (NEG); COCAINE,URINE NEG (NEG); PHENCYCLIDINE, URINE NEG (NEG)
[2017-04-10] MEDS: INSULIN ASPART 100 UNITS/ML 3 ML PEN SC SCH ×2 (16:45→20:00)
[2017-04-10 19:41] LABS: HEMATOCRIT 33.1 % (37-47); MEAN CELL VOLUME 91.2 fL (80-100); MEAN CORPUSCULAR HEMOGLOBIN 31.4 pg (25-34); MEAN CORPUSCULAR HGB CONC 34.4 g/dl (32-36); MEAN PLATELET VOLUME 10.2 fL (7.4-10.4); PLATELET COUNT 284 K/uL (130-400); RED BLOOD COUNT 3.63 M/uL (4.2-5.4); WHITE BLOOD COUNT 19.77 K/uL (4.8-10.8)
[2017-04-10 20:07] LABS: BUN/CREATININE RATIO 19.4 (10-20); CREATININE 0.95 mg/dl (0.60-1.20); POTASSIUM 3.2 mmol/L (3.5-5.1)
[2017-04-10] MEDS ORDERED: POTASSIUM CHLORIDE 10 MEQ TABCR PO STA (21:00)
[2017-04-10] MEDS ORDERED: NURSING DECISION MEDICATION ORDER SCH (23:30)
[2017-04-10] MEDS ORDERED: COUGH DROP (SUGAR FREE) LOZ 24 LOZ/1 BOX ONE (23:34)
[2017-04-10] MEDS ORDERED: COUGH DROP (SUGAR FREE) LOZ 24 LOZ/1 BOX PO PRN (23:45)
[2017-04-11] VITALS (7 sets, daily range): BP systolic 116–131; BP diastolic 79–96; PULSE 87–98; TEMP 37–37.6; O2SAT 94–98
[2017-04-11] MEDS: D5W AND 1/2NSS + 20MEQ KCL 1,000 ML IV SCH ×2 (00:16→03:50)
[2017-04-11] MEDS: INSULIN ASPART 100 UNITS/ML 3 ML PEN SC SCH ×6 (03:55→20:00)
[2017-04-11] MEDS: FoLIC ACID INJ 1 MG in SYRINGE 9.8 ML IV SCH (08:21)
[2017-04-11 09:22] LABS: MEAN CELL VOLUME 93.3 fL (80-100); MEAN CORPUSCULAR HEMOGLOBIN 30.1 pg (25-34); PLATELET COUNT 258 K/uL (130-400); RED BLOOD COUNT 3.86 M/uL (4.2-5.4); WHITE BLOOD COUNT 10.97 K/uL (4.8-10.8)
[2017-04-11 09:31] LABS: MEAN CORPUSCULAR HGB CONC 32.2 g/dl (32-36)
--- NOTE | 2017-04-11 09:34 | Psychiatric Consultation ---
Consultation Date of Consultation Apr 11, 2017. Identifying Data Britt Cheung is a 31-year-old female who currently lives with her parents in [place]. Consult is by Dr. Stoll for Depression. Chief Complaint "I just haven't been able to make all the changes that I should". History of Present Illness Britt reports chronic low grade depressive symptoms since the of her 4 years ago (sarcoma); they had been for 8 years. She reports that it was even more difficult as his parents were "rude". She was diagnosed with Type I DM and lost her job in August of 2016 and had to move back in with her parents by Oct 2016. She doesn't feel that she's fully integrated into care for her diabetes locally and admits that feeling stuck probably contributes to some compliance issues with her diet. She misses her life in [place] and of course feels that her parents are treating her "like a 14 yo again". She has attempted to cut back on energy drinks (sugar free Red Bull or Monster) as she recognizes that they may her jittery and irritable. She admits that she will drink alcohol, sometimes binging on up to 10 drinks in a weekend or vodka to the point she falls asleep. She is currently on ETOH withdrawal protocol but denies any history of withdrawal and readily gave up ETOH for Lent. 14, denies suicidal ideation. Answered 1 on the "thoughts be better off or hurting self" question, states that she meant her noncompliance with diabetes care. Past Psychiatric History Current OP Treatment: therapist (Brandy Martini, [place]) Prior OP Treatment: therapist Prior Psych Hospitalizations: none Access to a Gun: No Suicide Attempts: No Past Medication Trials Prozac, Xanax, Ambien during 's illness, states meds were sedating and didn't feel that she had feelings no history of ovidio Past Medical/Surgical History (1) DKA, type 1 (2) Irritable bowel syndrome Allergies Allergies: Coded Allergies: No Known Allergies (Unverified , 04/10/17) Home Medications Scheduled Insulin Aspart (Novolog Flexpen), 2-4 UNITS SQ AC Insulin Glargine (Lantus), 8-10 UNITS SC QPM Family History History of Suicide: No History of Substance Abuse: Yes (mother and uncle have been to rehab for ETOH) Psychiatric History: Yes (mother anxiety) Alcohol Use Alcohol Use In Past 12 Months: Yes Smoking Use Smoking Status: Never Smoker Substance History some use of MJ and cocaine in college Personal History Childhood: grew up in [facility], 2 sis and 1 brother (bro in [employer] in [facility]) Education: other ([employer] in [place] [facility]) Work History: currently works at [employer]) Relationship History: Children: none Legal History: none Psychological Trauma History: Significant Loss Review of Systems Psych: denies symptoms other than stated above Constitutional: fatigue Cardiovascular: denied GI: N resolving Neurologic: denied Remainder of 10 body systems also reviewed and denied other than noted above. Examination Vital Signs Vital Signs Past 12 Hours Date Time Temp Pulse Resp B/P (MAP) Pulse Ox O2 Delivery O2 Flow Rate FiO2 04/11/17 08:00 Room Air 04/11/17 07:00 37.0 87 16 118/79 (92) 98 Room Air 04/11/17 04:00 Room Air 04/11/17 03:50 37.4 88 20 116/79 (91) 97 Room Air 04/11/17 00:00 Room Air 04/10/17 23:12 37.2 101 20 115/77 (90) 98 Room Air Laboratory Results Last 24 Hours Test 04/10/17 10:03 04/10/17 10:42 04/10/17 12:28 04/10/17 12:41 Bedside Glucose 111 mg/dl 110 mg/dl 100 mg/dl Venous Blood pH 7.45 Sodium Level 139 mmol/L Potassium Level 3.6 mmol/L Chloride Level 99 mmol/L Carbon Dioxide Level 30 mmol/L Anion Gap 10.0 mmol/L Blood Urea Nitrogen 29 mg/dl Creatinine 1.40 mg/dl Est Creatinine Clear Calc Drug Dose 55.7 ml/min Estimated GFR () 58.3 Estimated GFR (Non- 50.3 BUN/Creatinine Ratio 20.6 Random Glucose 109 mg/dl Calcium Level 7.9 mg/dl Phosphorus Level 2.8 mg/dl Magnesium Level 2.6 mg/dl Test 04/10/17 12:50 04/10/17 13:14 04/10/17 13:51 04/10/17 14:05 Bedside Glucose 115 mg/dl 122 mg/dl 117 mg/dl Urine Opiates Screen POS Urine Methadone, Qualitative NEG Urine Barbiturates NEG Urine Phencyclidine (PCP) Level NEG Ur Amphetamine/Methamphetamine NEG MDMA (Ecstasy) Screen NEG Urine Benzodiazepines Screen NEG Urine Cocaine Metabolite NEG Urine Marijuana (THC) NEG Test 04/10/17 14:33 04/10/17 16:33 04/10/17 18:09 04/10/17 20:01 Bedside Glucose 119 mg/dl 121 mg/dl 105 mg/dl White Blood Count 19.77 K/uL Red Blood Count 3.63 M/uL Hemoglobin 11.4 g/dL Hematocrit 33.1 % Mean Corpuscular Volume 91.2 fL Mean Corpuscular Hemoglobin 31.4 pg Mean Corpuscular Hemoglobin Concent 34.4 g/dl RDW Standard Deviation 45.4 fL RDW Coefficient of Variation 13.6 % Platelet Count 284 K/uL Mean Platelet Volume 10.2 fL Sodium Level 137 mmol/L Potassium Level 3.2 mmol/L Chloride Level 99 mmol/L Carbon Dioxide Level 30 mmol/L Anion Gap 8.0 mmol/L Blood Urea Nitrogen 18 mg/dl Creatinine 0.95 mg/dl Est Creatinine Clear Calc Drug Dose 82.0 ml/min Estimated GFR () 93.2 Estimated GFR (Non- 80.4 BUN/Creatinine Ratio 19.4 Random Glucose 119 mg/dl Calcium Level 8.0 mg/dl Magnesium Level 2.3 mg/dl Test 04/11/17 00:05 04/11/17 03:53 04/11/17 06:18 04/11/17 07:38 Bedside Glucose 102 mg/dl 97 mg/dl 94 mg/dl Total Bilirubin 0.8 mg/dl Direct Bilirubin 0.2 mg/dl Aspartate Amino Transf (AST/SGOT) 25 U/L Alanine Aminotransferase (ALT/SGPT) 29 U/L Alkaline Phosphatase 49 U/L Total Protein 6.0 gm/dl Albumin 3.1 gm/dl Test 04/11/17 09:00 04/11/17 09:01 Mental Examination During interview pt is: alert and oriented Appearance: appropriately groomed Eye contact is: good Motor behavior is: no abnormal motor movements Speech: normal in rate, rhythm & volume Affect: depressed Mood is: depressed Thought process: clear, coherent Thought content: reality based without delusions Suicidal thought are: denied Homicidal thoughts are: denied Hallucinations: denies auditory, denies visual Cognition: memory grossly intact, attention grossly intact, language grossly intact Intelligence estimated to be: consistent with level of education Insight: limited Judgement: limited Impression / Recommendations Impression 31 yo female with history of persistent depressive disorder, currently experiencing a major depressive episode in the context of major life change/ recent diagnosis of Type I DM. Recommendations risks/benefits/alternatives reviewed re: retrial of an SSRI. Agreeable to low dose Lexapro. hospital withdrawal protocol per primary team, drinking problematic not so much from sheer amount but impact on glucose control and clearly self medicating, she is aware medical advise is to avoid energy drinks and to abstain from ETOH. JOSE LUIS per liaison for therapist (currently Wednesday), patient agreeable to see BRIDGETT (PCP) for monitoring pending psychiatry, options may be limited given type of insurance no indication for inpatient mental health admission
[2017-04-11 09:43] LABS: CALCIUM 8.4 mg/dl (8.5-10.1); CREATININE 0.9 mg/dl (0.60-1.20); POTASSIUM 3.2 mmol/L (3.5-5.1)
[2017-04-11] MEDS ORDERED: NURSING VERBAL MED ORDER ONE (09:45)
[2017-04-11] MEDS ORDERED: POTASSIUM CHLORIDE 10 MEQ TABCR PO ONE (10:30)
[2017-04-11] MEDS: ESCITALOPRAM OXALATE 10 MG TAB PO SCH (10:53)
[2017-04-11] MEDS: LORAZEPAM 0.5 MG TAB PO PRN ×2 (10:53→20:23)
[2017-04-11] MEDS: THIAMINE HCL INJ 100 MG in SYRINGE 9 ML IV SCH (10:55)
[2017-04-11] MEDS: PANTOprazole INJ 40 MG in SYRINGE 0 ML IV SCH (10:55)
--- NOTE | 2017-04-11 11:29 | Pharmacy Progress Note ---
Glycemic Control: Progress Nt Date of Service Apr 11, 2017. Scope Glycemic Pharmacist consulted by Dr. Stoll on 04/10/17 for glycemic control and to write orders per [facility] inpatient glycemic control protocol. Objective Accuchecks BSG (last 24hrs): Test 04/10/17 12:28 04/10/17 12:41 04/10/17 12:50 04/10/17 13:14 Bedside Glucose 100 mg/dl (70-90) 115 mg/dl (70-90) 122 mg/dl (70-90) Random Glucose 109 mg/dl (70-99) Test 04/10/17 13:51 04/10/17 14:33 04/10/17 16:33 04/10/17 18:09 Bedside Glucose 117 mg/dl (70-90) 119 mg/dl (70-90) 121 mg/dl (70-90) Random Glucose 119 mg/dl (70-99) Test 04/10/17 20:01 04/11/17 00:05 04/11/17 03:53 04/11/17 07:38 Bedside Glucose 105 mg/dl (70-90) 102 mg/dl (70-90) 97 mg/dl (70-90) 94 mg/dl (70-90) Test 04/11/17 09:16 04/11/17 10:53 Random Glucose 119 mg/dl (70-99) Bedside Glucose 94 mg/dl (70-90) Laboratory Data (last 24hrs) Test 04/10/17 12:41 04/10/17 18:09 04/11/17 09:16 Anion Gap 10.0 mmol/L 8.0 mmol/L 7.0 mmol/L BUN/Creatinine Ratio 20.6 19.4 8.0 Blood Urea Nitrogen 29 mg/dl 18 mg/dl 7 mg/dl Creatinine 1.40 mg/dl 0.95 mg/dl 0.90 mg/dl Potassium Level 3.6 mmol/L 3.2 mmol/L 3.2 mmol/L Sodium Level 139 mmol/L 137 mmol/L 139 mmol/L White Blood Count 19.77 K/uL 10.97 K/uL HbA1c: Test 04/10/17 08:00 Hemoglobin A1c 4.7 % (4.5-5.6) Recent Pertinent Medications Outpatient Anti-diabetic Regimen: * Lantus 8-10 units, Novolog 2-4 units AC * TDD 14-22 units per day * A1c = 4.7 % from today 04/10/17 * EAG = 88 mg/dl Risk Factors for Insulin Resistance: * Infection: Questionable, Given Vanc + Zosyn in ED. Ordered Rocephin IV upon admission. * IVF: D51/2NS + 20 meq KCl at 100 ml/hr * Diet: Advanced to clear liquids Assessment & Plan ASSESSMENT: * ADA & AACE recommend a goal blood sugar range 140-180 mg/dl for the majority of critically ill & non-critically ill patients. However, more stringent targets may be selected in individual cases. Initial from 04/10/17 * 31 yo female admitted with NATALIIA and DKA. Recently diagnosed with DM1 in February 2017. A1c indicates controlled BSGs as an outpatient. * No Lantus administered yesterday. Pt reports 2 days of N/V prior to admission. She also reports h/o binge alcoholism most recently on Wednesday this week. * Anion gap = 20 H. Therefore, patient was ordered an Insulin gtt on admission. Pharmacy consulted to continue management of glycemic regimen during admission and transition to SQ basal/bolus when appropriate. Will assess appropriateness of this transition in 24 hours. * Pt is NPO, however, she will require some insulin on board d/t the nature of Type 1 diabetes. Will start Insulin gtt at 1 unit per hour (vs 2.2 units per hour as instructed by gtt calculator). The pt's BSG is 110 mg/dl and she is a type 1 diabetic therefore I predict her needs are less than estimated by the calculator. Of note, she only requires a TDD of 14-22 units of insulin per day with well controlled BSGs as an outpatient. * Also, the goal BSG range will be adjusted from 150-250mg/dl to 140-180mg/dl since pt's BSG is 110 mg/dl already. * Addendum on 04/10/17: * Upon further evaluation... the pt's anion gap has closed and BSGs remain below goal range. * Spoke to Dr. Stoll via phone and decision was made to transition off insulin gtt to Novolog q4hour. * Pt's insulin requirements are currently very low and I do not feel comfortable starting Lantus. Will re-evaluate need for Lantus in the morning. 04/11/17 * Type 1 diabetic with minimal insulin needs currently. So far the pt has only received 1 unit of insulin this admission from the insulin gtt that ran yesterday for an hour before being held and subsequently transitioned to Novolog [id number]. No Novolog has been administered so far. * Will continue with current regimen. No Lantus needed at this time. FBG this morning was 94 mg/dl. BSGs ranging 94-121 mg/dl during the past 24 hours with minimal (zero) insulin requirements despite D5 IVF (5gm of dextrose per hour, 120gm of dextrose per 24 hours). * Diet advanced today to clear liquids. This may influence insulin needs. Will continue to monitor and adjust regimen if needed. PLAN FOR INPATIENT GLYCEMIC CONTROL: * Hold Lantus * Continue Novolog [id number] * CF - 50 * CR - 20 * Goal BSG Low 140 to High 180 mg/dl * Continue D51/2NS + 20 meq KCl at 100 ml/hr * Please note that the plan above was derived based on current level of insulin resistance and hospital stress. These recommendations are appropriate for inpatient admission only. Plan of care upon discharge will need to be reassessed to avoid potential outpatient hypo/hyperglycemia. Thank you.
[2017-04-11] MEDS: CEFTRIAXONE SOD INJ 1 GM in DEXTROSE 5% ADD-VANTAGE 50ML 50 ML IV SCH (11:44)
--- NOTE | 2017-04-11 16:58 | Progress Note ---
Internal Med Progress Note Date of Service: Apr 11, 2017. Provider Documentation: SUBJECTIVE: feels much better to day no nausea or vomiting no fever or chills tolerating clear diet well OBJECTIVE: Vital Signs-as noted below Exam: General-young female , no sign of distress Eyes-sclera non icteric Lungs-CTA Heart-regular S1/S2 Abdomen-soft,non tender Extremities-no lower ext edema Neuro-AAO x3, no focal deficit Lab data as noted below. ASSESSMENT & PLAN: TYPE 1 DM /DKA : recently diagnosed with Type 1 DM last year nov as she was admitted to [facility] with DKA has been on Lantus and insulin NovoLog questionable compliance with dietary indiscretion presented with Nausea /vomiting elevated anion gap /beta hydroxybutyrate level resolved after IV fluid , IV insulin gtt appreciate pharmacy input for glycemic control pt is transitioned to insulin Sub q SSI no Lantus ordered for baseline low BSG clinically improved diet advanced health educator consulted pt will need to establish care with local endocrinology Dr Salcedo information for endocrine follow up given NATALIIA : due to above renal function normalized after IV hydration LEUKOCYTOSIS : presented with Marked Leukocytosis 30 K possible due to stress /dehydration had + ua WBC improved to 11 k today blood and urine culture negative cont to monitor ALCOHOL ABUSE : hx of Binge drinking last drink was > 3 days back pt is counselled life threatening consequences of Type 1 DM and excessive alcohol intake verbalized understanding prn Ativan ordered for withdrawal symptom cont to monitor DEPRESSION appreciate Psych eval started on low dose SSRI -Lexapro 5 mg daily will need out pt Psych followup DVT PROPHYLAXIS scd and alesha DISPOSITION Pt will be discharged home when medically stable pt and her mother update at bedside Vital Signs: Date Time Temp Pulse Resp B/P (MAP) Pulse Ox O2 Delivery O2 Flow Rate FiO2 04/11/17 16:00 Room Air 04/11/17 15:05 37.1 98 18 128/92 (104) 94 Room Air 04/11/17 12:00 Room Air 04/11/17 11:42 37.2 88 17 125/87 (100) 96 Room Air 04/11/17 08:00 Room Air 04/11/17 07:00 37.0 87 16 118/79 (92) 98 Room Air 04/11/17 04:00 Room Air 04/11/17 03:50 37.4 88 20 116/79 (91) 97 Room Air 04/11/17 00:00 Room Air 04/10/17 23:12 37.2 101 20 115/77 (90) 98 Room Air 04/10/17 20:00 Room Air 04/10/17 19:33 37.0 101 18 131/89 (103) 100 Room Air Lab Results: Results Past 24 Hours Test 04/10/17 18:09 04/10/17 20:01 04/11/17 00:05 04/11/17 03:53 Range/Units White Blood Count 19.77 4.8-10.8 K/uL Red Blood Count 3.63 4.2-5.4 M/uL Hemoglobin 11.4 12.0-16.0 g/dL Hematocrit 33.1 37-47 % Mean Corpuscular Volume 91.2 80-100 fL Mean Corpuscular Hemoglobin 31.4 25-34 pg Mean Corpuscular Hemoglobin Concent 34.4 32-36 g/dl RDW Standard Deviation 45.4 36.4-46.3 fL RDW Coefficient of Variation 13.6 11.5-14.5 % Platelet Count 284 130-400 K/uL Mean Platelet Volume 10.2 7.4-10.4 fL Sodium Level 137 136-145 mmol/L Potassium Level 3.2 3.5-5.1 mmol/L Chloride Level 99 98-107 mmol/L Carbon Dioxide Level 30 21-32 mmol/L Anion Gap 8.0 3-11 mmol/L Blood Urea Nitrogen 18 7-18 mg/dl Creatinine 0.95 0.60-1.20 mg/dl Est Creatinine Clear Calc Drug Dose 82.0 ml/min Estimated GFR () 93.2 Estimated GFR (Non- 80.4 BUN/Creatinine Ratio 19.4 10-20 Random Glucose 119 70-99 mg/dl Calcium Level 8.0 8.5-10.1 mg/dl Magnesium Level 2.3 1.8-2.4 mg/dl Bedside Glucose 105 102 97 70-90 mg/dl Test 04/11/17 06:18 04/11/17 07:38 04/11/17 09:16 04/11/17 10:53 Range/Units Total Bilirubin 0.8 0.2-1 mg/dl Direct Bilirubin 0.2 0-0.2 mg/dl Aspartate Amino Transf (AST/SGOT) 25 15-37 U/L Alanine Aminotransferase (ALT/SGPT) 29 12-78 U/L Alkaline Phosphatase 49 45-117 U/L Total Protein 6.0 6.4-8.2 gm/dl Albumin 3.1 3.4-5.0 gm/dl Bedside Glucose 94 94 70-90 mg/dl White Blood Count 10.97 4.8-10.8 K/uL Red Blood Count 3.86 4.2-5.4 M/uL Hemoglobin 11.6 12.0-16.0 g/dL Hematocrit 36.0 37-47 % Mean Corpuscular Volume 93.3 80-100 fL Mean Corpuscular Hemoglobin 30.1 25-34 pg Mean Corpuscular Hemoglobin Concent 32.2 32-36 g/dl RDW Standard Deviation 46.2 36.4-46.3 fL RDW Coefficient of Variation 13.4 11.5-14.5 % Platelet Count 258 130-400 K/uL Mean Platelet Volume 10.0 7.4-10.4 fL Sodium Level 139 136-145 mmol/L Potassium Level 3.2 3.5-5.1 mmol/L Chloride Level 102 98-107 mmol/L Carbon Dioxide Level 30 21-32 mmol/L Anion Gap 7.0 3-11 mmol/L Blood Urea Nitrogen 7 7-18 mg/dl Creatinine 0.90 0.60-1.20 mg/dl Est Creatinine Clear Calc Drug Dose 87.0 ml/min Estimated GFR () 99.4 Estimated GFR (Non- 85.8 BUN/Creatinine Ratio 8.0 10-20 Random Glucose 119 70-99 mg/dl Calcium Level 8.4 8.5-10.1 mg/dl Beta-Hydroxybutyric Acid 0.80 0.2-2.81 mg/dL Test 04/11/17 15:02 04/11/17 16:07 Range/Units Bedside Glucose 84 82 70-90 mg/dl
[2017-04-11] MEDS ORDERED: ALUMINUM/MAGNESIUM SUSP 18 ML, LIDOCAINE HCL 2% VISCOUS SOLN 6 ML, BARCODE IDENTIFIER 1 EA PO PRN ×2 (18:00)
[2017-04-11] MEDS ORDERED: GI COCKTAIL PO PRN (18:00)
[2017-04-12] MEDS: INSULIN ASPART 100 UNITS/ML 3 ML PEN SC SCH ×4 (04:00→12:00)
[2017-04-12 06:28] LABS: HEMATOCRIT 40.1 % (37-47); MEAN CELL VOLUME 94.4 fL (80-100); MEAN CORPUSCULAR HEMOGLOBIN 30.1 pg (25-34); MEAN CORPUSCULAR HGB CONC 31.9 g/dl (32-36); MEAN PLATELET VOLUME 10.8 fL (7.4-10.4); PLATELET COUNT 245 K/uL (130-400); RED BLOOD COUNT 4.25 M/uL (4.2-5.4); WHITE BLOOD COUNT 8.27 K/uL (4.8-10.8)
[2017-04-12 07:08] LABS: BUN/CREATININE RATIO 10.4 (10-20); CALCIUM 8.8 mg/dl (8.5-10.1); CREATININE 0.68 mg/dl (0.60-1.20); MAGNESIUM 2.5 mg/dl (1.8-2.4); POTASSIUM 3.4 mmol/L (3.5-5.1)
[2017-04-12 07:09] LABS: PHOSPHORUS 2.6 mg/dl (2.5-4.9)
[2017-04-12 07:10] VITALS: BP 118/80; PULSE 87; TEMP 36.7; O2SAT 99
[2017-04-12] MEDS: ESCITALOPRAM OXALATE 10 MG TAB PO SCH (08:11)
[2017-04-12] MEDS: FoLIC ACID INJ 1 MG in SYRINGE 9.8 ML IV SCH (09:30)
[2017-04-12] MEDS: THIAMINE HCL INJ 100 MG in SYRINGE 9 ML IV SCH (11:28)
[2017-04-12] MEDS: PANTOprazole INJ 40 MG in SYRINGE 0 ML IV SCH (11:28)
[2017-04-12] MEDS: CEFTRIAXONE SOD INJ 1 GM in DEXTROSE 5% ADD-VANTAGE 50ML 50 ML IV SCH (11:40)
[2017-04-12] MEDS ORDERED: POTASSIUM CHLORIDE 10 MEQ TABCR PO ONE (12:00)
--- NOTE | 2017-04-12 13:05 | Discharge Instructions ---
Discharge Instructions Date of Service Apr 12, 2017. Admission Reason for Admission: Sorin,Dka Type 1 Discharge Discharge Diagnosis / Problem: ACUTE RENAL FAILURE /DKA /TYPE 1 DIABETES Discharge Goals Goal(s): Decrease discomfort, Improve disease control, Diagnostic testing, Therapeutic intervention Activity Recommendations Activity Limitations: resume your previous activity Driving or Machine Use: no limitations . Instructions / Follow-Up Instructions / Follow-Up HOSPITAL FOLLOW UP 04/14/2017 @ 10:[address] Manny Osei, [facility] AVOID EXCESSIVE ALCOHOL INTAKE LIFE THREATENING COMPLICATION CAN HAPPEN WITH BINGE DRINKING /TYPE 1 DM -CAN LEAD TO DIABETIC COMA NEED TO FOLLOW UP WITH ENDOCRINOLOGY FOR FURTHER MANAGEMENT OF TYPE 1 DIABETES DISCHARGE RECOMMENDATIONS: * Lantus 5 units qHS (do not give if blood sugar less than 100 mg/dL) * Novolog 2 units with meals (do not give if blood sugar less than 100 mg/dL OR if you skip a meal) Appointments scheduled at [facility] Endocrinology: * May 06 @ 10 am with Rosa Moseley (educator) and [address] Kaylene Vilchis * May 13 @ [address] Kaylene Vilchis - follow up appointment PLEASE CHECK YOUR BLOOD SUGAR 4 TIMES DAILY -1. PRE BREAKFAST ( FASTING ) -2. PRE LUNCH -3. PRE DINNER -4. BEFORE BEDTIME PLEASE KEEP LOG OF ALL THE BLOOD SUGAR TESTING DO NOT TAKE INSULIN IF BLOOD SUGAR IS LESS THAN 100 OR YOUR SKIPPING MEAL NEED TO FOLLOW UP WITH PSYCHIATRY OUT PATIENT FOR DEPRESSION , please call to schedule as appointment [employer] : PHONE NO # [phone] ADDRESS : [address] [place] [id number] Current Hospital Diet Patient's current hospital diet: Diabetes Type 1 Diet Discharge Diet Recommended Diet: Diabetes Type 1 Diet Pending Studies Studies pending at discharge: no Laboratory Results Hemoglobin A1c Test 04/10/17 08:00 Range/Units Estimated Average Glucose 88 mg/dl Hemoglobin A1c 4.7 4.5-5.6 % Medical Emergencies . Who to Call and When: Medical Emergencies: If at any time you feel your situation is an emergency, please call 911 immediately. . Non-Emergent Contact Non-Emergency issues call your: Primary Care Provider . . "Provider Documentation" section prepared by Shanthi Stoll. . VTE Core Measure Inpt VTE Proph given/why not?: Kelvin Perez, SCD's
[2017-04-12] MEDS ORDERED: LXP10 PO (13:09)
[2017-04-12] MEDS ORDERED: INSDGI SC (13:09)
[2017-04-12] MEDS ORDERED: NVLGI/PEN SQ (13:09)
--- NOTE | 2017-04-12 13:21 | Pharmacy Progress Note ---
Glycemic: Assessment & Plan Date of Service Apr 12, 2017. Assessment & Plan The patient is currently receiving 0 units of insulin per day. BSGs ranging 84 - 98 mg/dl over the past 24hrs. * Basal insulin: None - currently on hold for low BSG * Correctional Insulin: Novolog Correction per scale q4h Goal Range: Low 140 mg/dL - High 180 mg/dL Correction Factor: 50 mg/dL/unit * Prandial insulin: Per carb ratio of 1 unit per 20 grams CHO consumed ASSESSMENT: * Patient still not requiring any insulin for close to 48 hours, with normal anion gap * Unsure if she is just holding on to insulin after the NATALIIA? or if she is in the honeymoon phase? * Spoke with Dr. Stoll today and came up with a plan for discharge since she would like to send her home today PLAN: * Continue q4h accuchecks * Lantus 5 units qHS to be initiated once BSG above 140 mg/dL DISCHARGE RECOMMENDATIONS: (plan discussed with Dr. Stoll) * Lantus 5 units qHS (do not give if blood sugar less than 100 mg/dL) * Novolog 2 units with meals (do not give if blood sugar less than 100 mg/dL OR if you skip a meal) Appointments scheduled at [facility] Endocrinology: * May 06 @ 10 am with Rosa Moseley (educator) and [address] Kaylene Vilchis * May 13 @ [address] Kaylene Vilchis - follow up appointment
[2017-04-12 13:22] VITALS: Ht 175.3 cm; Wt 60.3 kg
[2017-04-12] MEDS ORDERED: OMEP20TA PO (15:10)
--- NOTE | 2017-04-12 15:10 | Progress Note ---
Internal Med Progress Note Date of Service: Apr 12, 2017. Provider Documentation: SUBJECTIVE: feels fine ,no nausea , vomiting tolerating diet well wants to be discharged home today if possible OBJECTIVE: Vital Signs-as noted below Exam: General-young female , no sign of distress Eyes-sclera non icteric Lungs-CTA Heart-regular S1/S2 Abdomen-soft,non tender Extremities-no lower ext edema Neuro-AAO x3, no focal deficit Lab data as noted below. ASSESSMENT & PLAN: TYPE 1 DM /DKA : recently diagnosed with Type 1 DM last year nov as she was admitted to [facility] with DKA has been on Lantus and insulin NovoLog questionable compliance with dietary indiscretion presented with Nausea /vomiting elevated anion gap /beta hydroxybutyrate level resolved after IV fluid , IV insulin gtt appreciate pharmacy input for glycemic control pt is transitioned to insulin Sub q SSI no Lantus ordered for baseline low BSG clinically improved diet advanced -tolerating well wellness educator consulted D/w Pharmacy pt has been requiring none to minimum insulin will be discharged with following regimen : DISCHARGE RECOMMENDATIONS: * Lantus 5 units qHS (do not give if blood sugar less than 100 mg/dL) * Novolog 2 units with meals (do not give if blood sugar less than 100 mg/dL OR if you skip a meal) Appointments scheduled at [facility] [place]ocr[place]ology: * May 06 @ 10 am with Rosa Moseley (educator) and [address] Kaylene Vilchis * May 13 @ [address] Kaylene Vilchis - follow up appointment NATALIIA : due to above renal function normalized after IV hydration Cr 0.6 IVF d/rikki LEUKOCYTOSIS : resolved presented with Marked Leukocytosis 30 K possible due to stress /dehydration blood and urine culture negative ALCOHOL ABUSE : hx of Binge drinking last drink was > 3 days back pt is counselled life threatening consequences of Type 1 DM and excessive alcohol intake verbalized understanding no sign of withdrawal symptom DEPRESSION appreciate Psych eval started on low dose SSRI -Lexapro 5 mg daily will need out pt Psych followup DVT PROPHYLAXIS scd and teds DISPOSITION stable to be discharged home today Vital Signs: Date Time Temp Pulse Resp B/P (MAP) Pulse Ox O2 Delivery O2 Flow Rate FiO2 04/12/17 15:38 36.7 87 16 99 Room Air 04/12/17 08:07 Room Air 04/12/17 07:10 36.7 87 16 118/80 (93) 99 Room Air 04/12/17 00:05 Room Air 04/11/17 23:11 37.6 95 20 129/86 (100) 96 Room Air Lab Results: Results Past 24 Hours Test 04/12/17 00:23 04/12/17 05:40 04/12/17 06:10 04/12/17 07:40 Range/Units Bedside Glucose 96 93 98 70-90 mg/dl White Blood Count 8.27 4.8-10.8 K/uL Red Blood Count 4.25 4.2-5.4 M/uL Hemoglobin 12.8 12.0-16.0 g/dL Hematocrit 40.1 37-47 % Mean Corpuscular Volume 94.4 80-100 fL Mean Corpuscular Hemoglobin 30.1 25-34 pg Mean Corpuscular Hemoglobin Concent 31.9 32-36 g/dl RDW Standard Deviation 45.6 36.4-46.3 fL RDW Coefficient of Variation 13.2 11.5-14.5 % Platelet Count 245 130-400 K/uL Mean Platelet Volume 10.8 7.4-10.4 fL Sodium Level 139 136-145 mmol/L Potassium Level 3.4 3.5-5.1 mmol/L Chloride Level 102 98-107 mmol/L Carbon Dioxide Level 29 21-32 mmol/L Anion Gap 8.0 3-11 mmol/L Blood Urea Nitrogen 7 7-18 mg/dl Creatinine 0.68 0.60-1.20 mg/dl Est Creatinine Clear Calc Drug Dose 115.2 ml/min Estimated GFR () 136.0 Estimated GFR (Non- 117.4 BUN/Creatinine Ratio 10.4 10-20 Random Glucose 89 70-99 mg/dl Calcium Level 8.8 8.5-10.1 mg/dl Phosphorus Level 2.6 2.5-4.9 mg/dl Magnesium Level 2.5 1.8-2.4 mg/dl Total Bilirubin 0.6 0.2-1 mg/dl Direct Bilirubin 0.2 0-0.2 mg/dl Aspartate Amino Transf (AST/SGOT) 23 15-37 U/L Alanine Aminotransferase (ALT/SGPT) 32 12-78 U/L Alkaline Phosphatase 55 45-117 U/L Total Protein 7.0 6.4-8.2 gm/dl Albumin 3.7 3.4-5.0 gm/dl Test 04/12/17 11:54 Range/Units Bedside Glucose 96 70-90 mg/dl
[2017-04-12 15:38] VITALS: BP 118/80; PULSE 87; TEMP 36.7; O2SAT 99
[2017-04-12] MEDS ORDERED: INSULIN GLARGINE SOLOSTAR 100 UNITS/ML 3 ML PEN SC SCH (22:00)
--- NOTE | 2017-04-12 23:04 | Discharge Summary ---
Discharge Summary Date of Service Apr 12, 2017. Discharge Summary Admission Date: Apr 10, 2017 at 09:47 Discharge Date: Apr 12, 2017 Discharge Disposition: Home Principal Diagnosis: ACUTE RENAL FAILURE /DKA /TYPE 1 DIABETES Consultations: NEPHROLOGY Medication Reconciliation New Medications: Omeprazole (Omeprazole) 20 Mg Tab 1 TAB PO DAILY for 30 Days, #30 TAB 3 Refills Escitalopram Oxalate (Escitalopram Oxalate) 10 Mg Tab 5 MG PO QAM for 30 Days, #30 TAB 2 Refills Changed Medications: Insulin Aspart (Novolog Flexpen) 100 Units/Ml Inj 2 UNITS SQ AC for 30 Days, #5 PEN 2 Refills (Changed from: 2-4 UNITS; Refills: ) CHECK BLOOD SUGAR PRE MEAL DO NOT TAKE INSULIN IF BLOOD SUGAR < 100 Insulin Glargine (Lantus) 100 Unit/Ml Inj 5 UNITS SC QPM for 30 Days, #5 PEN 2 Refills (Changed from: 8-10 UNITS; Refills : ) CHECK BLOOD SUGAR PRIOR DO NOT TAKE INSULIN IF BLOOD SUGAR < 100 Referrals At Discharge Follow up Referrals: Dispatch Manager Referral - 05/06/17 with Kaylene Vilchis M.D. Admission Information HPI (per Admitting provider): Attending: Dr. Stoll This is a 31 yo female that was recently diagnosed with Type I diabetes in February 2017. She states that she has had 2 days of nausea and vomiting every 15 mins. She attempted to stay hydrated by drinking water but vomited each time. Her mother was out of town and when she returned she brought the patient to the ED for evaluation. Patient labs revealed glucose of 169, Anion gap of 20, lactic acid 1.5. Also found to have NATALIIA with a creatinine of 2.9 (baseline 1). Patient states that she feels "shaky" but nausea is improved. The patient has never smoked cigarettes but has smoked marijuana several years ago. She binge drinks on the weekends and most recently consumed about 10 drinks this past weekend at a concert and 3-4 drinks Wednesday evening. She denies aspiration. She has no hematuria but does state that she has some irritation with urination. She has no chest pain, abdominal pain, back pain, or limb pain. She denies SOB, cough, hemoptysis. She has no history of malignancy or . She has no other PMH. She takes Lantus 8-9 units daily at night and is on a Novolog SSI. She checks glucose 3 times daily with meals but no longer keeps a log. She states that sugars are typically in the 90s. She follows with an veterinary surgery technician at [facility]. She recently established with Mik with Jennie Boston PA-C Physical Exam (per Admitting): General - NAD but with some anxiety Eyes - No icterus, gaze conjugate. Pupils equal and responsive ENT - Mucosa moist, no lesions or candidiasis. No dental caries. Neck - Supple, No JVD. No bruits or stridor Lungs - No bronchospasm, rales, or rhonchi. Heart - Regular, tachy ion the low 100s Abdomen - Soft, NT, ND, BS present. Some tenderness to deep palpation in LUQ with no guarding Extremities - No edema, pedal pulses intact Neuro - A&OX3 Skin - 5 tattoos all professionally placed Hospital Course TYPE 1 DM /DKA : recently diagnosed with Type 1 DM last year nov as she was admitted to [facility] with DKA has been on Lantus and insulin NovoLog questionable compliance with dietary indiscretion presented with Nausea /vomiting elevated anion gap /beta hydroxybutyrate level resolved after IV fluid , IV insulin gtt appreciate pharmacy input for glycemic control pt is transitioned to insulin Sub q SSI no Lantus ordered for baseline low BSG clinically improved diet advanced -tolerating well family life educator consulted D/w Pharmacy pt has been requiring none to minimum insulin will be discharged with following regimen : DISCHARGE RECOMMENDATIONS: * Lantus 5 units qHS (do not give if blood sugar less than 100 mg/dL) * Novolog 2 units with meals (do not give if blood sugar less than 100 mg/dL OR if you skip a meal) Appointments scheduled at [facility] [place] Endocrinology: * May 06 @ 10 am with Rosa Moseley (educator) and [address] Kaylene Vilchis * May 13 @ [address] Kaylene Vilchis - follow up appointment NATALIIA : due to above renal function normalized after IV hydration Cr 0.6 IVF d/rikki LEUKOCYTOSIS : resolved presented with Marked Leukocytosis 30 K possible due to stress /dehydration blood and urine culture negative ALCOHOL ABUSE : hx of Binge drinking last drink was > 3 days back pt is counselled life threatening consequences of Type 1 DM and excessive alcohol intake verbalized understanding no sign of withdrawal symptom DEPRESSION appreciate Psych eval started on low dose SSRI -Lexapro 5 mg daily will need out pt Psych followup DVT PROPHYLAXIS scd and teds DISPOSITION stable to be discharged home today Total time spent on discharge = 40 mins This includes examination of the patient, discharge planning, medication reconciliation, and communication with other providers. Discharge Instructions Discharge Instructions Date of Service Apr 12, 2017. Admission Reason for Admission: Nataliia,Dka Type 1 Discharge Discharge Diagnosis / Problem: ACUTE RENAL FAILURE /DKA /TYPE 1 DIABETES Discharge Goals Goal(s): Decrease discomfort, Improve disease control, Diagnostic testing, Therapeutic intervention Activity Recommendations Activity Limitations: resume your previous activity Driving or Machine Use: no limitations . Instructions / Follow-Up Instructions / Follow-Up HOSPITAL FOLLOW UP 04/14/2017 @ 10:[address] Manny Osei, [facility] AVOID EXCESSIVE ALCOHOL INTAKE LIFE THREATENING COMPLICATION CAN HAPPEN WITH BINGE DRINKING /TYPE 1 DM -CAN LEAD TO DIABETIC COMA NEED TO FOLLOW UP WITH ENDOCRINOLOGY FOR FURTHER MANAGEMENT OF TYPE 1 DIABETES DISCHARGE RECOMMENDATIONS: * Lantus 5 units qHS (do not give if blood sugar less than 100 mg/dL) * Novolog 2 units with meals (do not give if blood sugar less than 100 mg/dL OR if you skip a meal) Appointments scheduled at [facility] Endocrinology: * May 06 @ 10 am with Rosa Moseley (educator) and [address] Kaylene Vilchis * May 13 @ [address] Kaylene Vilchis - follow up appointment PLEASE CHECK YOUR BLOOD SUGAR 4 TIMES DAILY -1. PRE BREAKFAST ( FASTING ) -2. PRE LUNCH -3. PRE DINNER -4. BEFORE BEDTIME PLEASE KEEP LOG OF ALL THE BLOOD SUGAR TESTING DO NOT TAKE INSULIN IF BLOOD SUGAR IS LESS THAN 100 OR YOUR SKIPPING MEAL NEED TO FOLLOW UP WITH PSYCHIATRY OUT PATIENT FOR DEPRESSION , please call to schedule as appointment Floqq : PHONE NO # [phone] ADDRESS : [address] [place] [address] [place] [id number] Current Hospital Diet Patient's current hospital diet: Diabetes Type 1 Diet Discharge Diet Recommended Diet: Diabetes Type 1 Diet Pending Studies Studies pending at discharge: no Laboratory Results Hemoglobin A1c Test 04/10/17 08:00 Range/Units Estimated Average Glucose 88 mg/dl Hemoglobin A1c 4.7 4.5-5.6 % Medical Emergencies . Who to Call and When: Medical Emergencies: If at any time you feel your situation is an emergency, please call 911 immediately. . Non-Emergent Contact Non-Emergency issues call your: Primary Care Provider . . "Provider Documentation" section prepared by Shanthi Stoll. . VTE Core Measure Inpt VTE Proph given/why not?: Kelvin Perez, [facility] Additional Copies To Kaylene Vilchis M.D.
[2017-04-13] MEDS ORDERED: PANTOprazole SOD 40 MG TAB PO SCH (08:00)
[2017-04-14 13:05] LABS: COD UR NEGATIVE NG/ML (CUTOFF=50); HYDROCOD UR NEGATIVE NG/ML (CUTOFF=50); HYDROMOR UR NEGATIVE NG/ML (CUTOFF=50); MORPHINE UR 2230 NG/ML (CUTOFF=50); NORHYDROCODONE CONF UR NEGATIVE NG/ML (CUTOFF=50); OXYMORPH UR NEGATIVE NG/ML (CUTOFF=50)
== END 2017-04-12 16:44 | disposition home or self-care (01) | DRG 682 ==
LOC: C.EDB 06:16 → C.2T 09:47 → ENRESERV 09:58 → EDBEDREQ 04-11 15:47 → ENRESERV 04-11 16:13 → C.MS4W 04-11 17:14
PROVIDERS: ADMIT Hospitalist; ATTEND Hospitalist
DX: N17.9 Acute kidney failure, unspecified (principal); E10.10 Type 1 diabetes mellitus with ketoacidosis without coma; E87.1 Hypo-osmolality and hyponatremia; D72.829 Elevated white blood cell count, unspecified; E86.0 Dehydration; F32.9 Major depressive disorder, single episode, unspecified; F41.9 Anxiety disorder, unspecified; R00.0 Tachycardia, unspecified; F10.10 Alcohol abuse, uncomplicated; Z79.4 Long term (current) use of insulin